=== PATIENT | male | born 1955 | race Caucasian/White ===

== ENCOUNTER → 2016-09-08 | Outpatient (CLI) | payer BC ==
[~2016-09-08] MED LIST: ATEN-175 PO; ATOR10TA88 PO; GLUCTAB7 PO; HYDR25TA5 PO; LSN40 PO
--- NOTE | 2016-09-08 15:27 | DIAGNOSTIC IMAGING REPORT ---
THYROID ULTRASOUND CLINICAL HISTORY: Multinodular thyroid. COMPARISON STUDY: Thyroid ultrasound February 27, 2016. TECHNIQUE: Sonography of the thyroid gland was performed. FINDINGS: The right lobe measures 4.6 x 1.8 x 1.9 cm and the left lobe measures 5.5 x 1.5 x 1.6 cm. Note is made of a 0.8 cm cyst within the right lobe. This is benign. Several left lobe thyroid nodules are unchanged since exam of February 27, 2016. The largest of these is a 1 x 0.6 x 0.8 cm isoechoic nodule within the lower pole. IMPRESSION: No change in several thyroid nodules since exam of February 27, 2016. These nodules do not meet criteria for biopsy. Electronically signed by: Santos Contreras M.D. 09/08/2016 3:25 PM Dictated Date/Time: 09/08/2016 3:23 PM
== END | disposition home or self-care (01) ==
LOC: C.ULTRBC 14:49
PROVIDERS: ATTEND Internal Medicine Geriatric Medicine
DX: E04.2 Nontoxic multinodular goiter (principal)

== ENCOUNTER → 2016-11-03 | Day surgery (SDC) | payer BC ==
[2016-10-21 08:00] VITALS: BMI 34.0
[~2016-11-03] VITALS: Ht 165.1 cm; Wt 94.5 kg
[~2016-11-03] MED LIST changes: -GLUCTAB7 PO; +LIDOCAINE HCL 2% 2 ML VIAL (20MG/ML) ONE; +MIDAZOLAM HCL 1 MG/ML 2ML VIAL ONE; +PROPOFOL IV EMULSION 10 MG/ML 20 ML VIAL IV ONE; +SODIUM CHLORIDE 0.9% 500ML 500 ML IV ONE
[2016-11-03 10:39] VITALS: Ht 165.1 cm; Wt 94.5 kg
--- NOTE | 2016-11-03 11:16 | Endo History and Physical ---
History & Physical Date of Service: Nov 03, 2016. Chief Complaint: SCREEENING FOR COLON CANCER Referring Physician: DR BERENICE GLASGOW History of Present Illness 61 yo CM who presents for screening colonoscopy. Past Surgical History Hx Cardiac Surgery: No Hx Internal Defibrillator: No Hx Pacemaker: No Hx Abdominal Surgery: Yes (PRAKASH) Hx of Implantable Prosthesis: No Hx Post-Op Nausea and Vomiting: No Hx Cancer Surgery: No Hx Thoracic Surgery: No Hx Orthopedic: No Hx Urinary Tract Surgery: No Family History None Social History Smoking Status: Never Smoker Hx Substance Use: No Hx Alcohol Use: No Allergies Coded Allergies: No Known Allergies (Verified , 11/03/16) Current Medications Reported Home Medications Medications Dose Route/Sig Max Daily Dose Days Date Category Lipitor (Atorvastatin Calcium) 10 Mg Tab 10 Mg PO QAM 09/24/15 Reported Lisinopril 40 Mg Tab 40 Mg PO QAM 09/24/15 Reported Hydrochlorothiazide 25 Mg Tab 25 Mg PO QAM 09/24/15 Reported Tenormin (Atenolol) 100 Mg Tab 100 Mg PO QAM 09/24/15 Reported Vital Signs Weight (Kilograms): 94.55 Height (Feet): 5 Height (Inches): 5 Date Time Temp Pulse Resp B/P Pulse Ox O2 Delivery O2 Flow Rate FiO2 11/03/16 10:45 36.6 64 20 160/96 98 Room Air Physical Exam General Appearance: WD/WN, no apparent distress Respiratory/Chest: Auscultation: breath sounds normal Cardiovascular: Heart Auscultation: RRR Abdomen: Bowel Sounds: normal Inspection & Palpation: soft, non-distended, no tenderness, guarding & rebound Assessment and Plan Assessment: 61 yo CM who presents for screening colonoscopy. Plan: Proceed with colonoscopy.
--- NOTE | 2016-11-03 11:45 | GI REPORT ---
Procedure Date: 11/03/2016 10:49 AM Procedure: Colonoscopy Indications: Screening for colorectal malignant neoplasm Medicines: Monitored Anesthesia Care Complications: No immediate complications. Estimated Blood Loss: Estimated blood loss: none. Procedure: Pre-Anesthesia Assessment: - Prior to the procedure, a History and Physical was performed, and patient medications and allergies were reviewed. The patient's tolerance of previous anesthesia was also reviewed. The risks and benefits of the procedure and the sedation options and risks were discussed with the patient. All questions were answered, and informed consent was obtained. Prior Anticoagulants: The patient has taken no previous anticoagulant or antiplatelet agents. ASA Grade Assessment: II - A patient with mild systemic disease. After reviewing the risks and benefits, the patient was deemed in satisfactory condition to undergo the procedure. After I obtained informed consent, the scope was passed under direct vision. Throughout the procedure, the patient's blood pressure, pulse, and oxygen saturations were monitored continuously. The scope was introduced through the anus and advanced to the terminal ileum. The colonoscopy was performed without difficulty. The patient tolerated the procedure well. The quality of the bowel preparation was good. The terminal ileum, ileocecal valve, appendiceal orifice, and rectum were photographed. Findings: Multiple small-mouthed diverticula were found in the sigmoid colon. A single diverticulum was inverted and initially appeared like an inflammatory polyp. Saline was injected into the base, and there was a small amount of pus noted at the base. Non-bleeding internal hemorrhoids were found during retroflexion. The hemorrhoids were small. Impression: - Diverticulosis in the sigmoid colon. - Non-bleeding internal hemorrhoids. - No specimens collected. Recommendation: - Resume previous diet. - Continue present medications. - Repeat colonoscopy in 1 year for surveillance, secondary to finding of inverted diverticulum versus polyp. - Return to primary care physician as previously scheduled. Stefano Arce DO 11/03/2016 11:44:52 AM This report has been signed electronically. Note Initiated On: 11/03/2016 10:49 AM I attest to the content of the Intraoperative Record and orders documented therein, exceptions below
--- NOTE | 2016-11-03 11:46 | Discharge Instructions ---
Endoscopy Patient Instructions Date / Procedure(s) Performed Nov 03, 2016. Colonoscopy Allergy Information Coded Allergies: No Known Allergies (Verified , 11/03/16) Discharge Date / Findings Nov 03, 2016. Diverticulosis Internal hemorrhoids Medication Instructions Stopped Medication(s): HCTZ STOPPED ON 11/02/16 OK to resume all medications today as prescribed. Reported Home Medications Medications Dose Route/Sig Max Daily Dose Days Date Category Lipitor (Atorvastatin Calcium) 10 Mg Tab 10 Mg PO QAM 09/24/15 Reported Lisinopril 40 Mg Tab 40 Mg PO QAM 09/24/15 Reported Hydrochlorothiazide 25 Mg Tab 25 Mg PO QAM 09/24/15 Reported Tenormin (Atenolol) 100 Mg Tab 100 Mg PO QAM 09/24/15 Reported Provider Instructions Activity Restrictions - No exercising or heavy lifting for 24 hours. - Do not drink alcohol the day of the procedure. - Do not drive a car or operate machinery until the day after the procedure. - Do not make any important decisions or sign important papers in 24 hours after the procedure. Following Day: - Return to full activity which may include returning to work/school. Diet Start your diet with liquids and light foods (jello, soup, juice, toast). Then eat your usual diet if not nauseated. Treatment For Common After Affects For mild abdominal pain, bloating, or excessive gas: - Rest - Eat lightly - Lie on right side Follow-Up Information Follow-up with DR BERENICE GLASGOW as scheduled Anesthesia Information What You Should Know You have had a procedure that required some medicine to reduce anxiety and discomfort. This treatment is called moderate sedation. After receiving the treatment, you may be sleepy, but you will be able to breathe on your own. The effects of the treatment may last for several hours. Follow these instructions along with Activity/Diet recommendations noted above: * Do NOT do anything where dizziness or clumsiness would be dangerous. * Rest quietly at home today, then you can be up and about tomorrow. * Have a responsible person stay with you the rest of today. * You may have had an I.V. today. If so, you may take the dressing off later today. Recommendations Call your doctor if: * Trouble breathing * Continuous vomiting for more than 24 hours * Temperature above 101 degrees * Severe abdominal pain or bloating * Pain not relieved by pain medicine ordered * There is increased drainage or redness from any incision * A large amount of rectal bleeding greater than 2-3 tablespoons. (If you had a polyp/s removed or have hemorrhoids, a small amount of blood - from the rectum is to be expected.) * You have any unanswered questions or concerns. IN THE EVENT OF A SERIOUS EMERGENCY, GO TO THE NEAREST EMERGENCY ROOM Your discharge instructions were prepared by provider Stefano Arce. Patient Instructions Signature Page Marco A Kwong Patient (or Guardian) Signature/Date: I have read and understand the instructions given to me by my caregivers. Caregiver/RN/Doctor Signature/Date: The above-named patient and/or guardian has received patient instructions on this date. + Original Patient Signature Page (only) stays with chart. Please make copy for patient.
[2016-11-03 12:15] VITALS: BP 129/82; PULSE 61; O2SAT 98
--- NOTE | 2016-11-03 12:33 | Anesthesiology Progress Note ---
Anesthesia Post Op Note Date & Time Nov 03, 2016 at 12:33 Vital Signs Pain Intensity: 0 Vital Signs Past 12 Hours Date Time Temp Pulse Resp B/P Pulse Ox O2 Delivery O2 Flow Rate FiO2 11/03/16 12:15 61 18 129/82 98 Room Air 11/03/16 12:00 62 18 122/84 98 Room Air 11/03/16 11:45 58 18 100/67 98 Room Air 11/03/16 10:45 36.6 64 20 160/96 98 Room Air Notes Mental Status: alert / awake / arousable, participated in evaluation Pt Amnestic to Procedure: Yes Nausea / Vomiting: adequately controlled Pain: adequately controlled Airway Patency, RR, SpO2: stable & adequate BP & HR: stable & adequate Hydration State: stable & adequate Anesthetic Complications: no major complications apparent
== END | disposition home or self-care (01) ==
LOC: C.GI 10:21
PROVIDERS: ATTEND Internal Medicine
DX: Z12.11 Encounter for screening for malignant neoplasm of colon (principal); K57.30 Diverticulosis of large intestine without perforation or abscess without bleeding; K63.5 Polyp of colon; K64.8 Other hemorrhoids; Z98.890 Other specified postprocedural states

== ENCOUNTER → 2017-03-31 | Outpatient (CLI) | payer BC ==
[~2017-03-31] MED LIST changes: -LIDOCAINE HCL 2% 2 ML VIAL (20MG/ML) ONE; -MIDAZOLAM HCL 1 MG/ML 2ML VIAL ONE; -PROPOFOL IV EMULSION 10 MG/ML 20 ML VIAL IV ONE; -SODIUM CHLORIDE 0.9% 500ML 500 ML IV ONE
[2017-03-31 11:34] LABS: ALT/SGPT 45 U/L (12-78); BLOOD UREA NITROGEN 16 mg/dl (7-18); BUN/CREATININE RATIO 13.6 (10-20); CALCIUM 9.7 mg/dl (8.5-10.1); CARBON DIOXIDE 30 mmol/L (21-32); CHLORIDE 103 mmol/L (98-107); CHOLESTEROL 113 mg/dl (0-200); GLUCOSE 108 mg/dl (70-99); POTASSIUM 3.7 mmol/L (3.5-5.1); SODIUM 139 mmol/L (136-145)
[2017-03-31 11:45] LABS: ALB/GLOB RATIO 1.1 (0.9-2); ALKALINE PHOSPHATASE 72 U/L (45-117); AST/SGOT 27 U/L (15-37); CHOLESTEROL/HDL RATIO 3.1; HDL CHOLESTEROL 36 mg/dl; LDL CHOLESTEROL CALCULATED 57 mg/dl; PROSTATE SPECIFIC ANTIGEN 0.617 ng/ml (0.000-4.000); THYROID STIMULATING HORMONE 0.549 uIu/ml (0.300-4.500); TRIGLYCERIDES 102 mg/dl (0-150); VERY LOW DENSITY LIPOPROT CALC 20 mg/dl
[2017-03-31 12:18] LABS: ESTIMATED AVERAGE GLUCOSE 123 mg/dl; HA1C FLAG Normal (Normal)
--- NOTE | 2017-04-04 12:02 | CODING QUERY MEDICAL NECESSITY ---
CQSUPPORTING DIAGNOSIS NEEDED A supporting diagnosis is required for the test/procedure performed on this patient in order for us to be reimbursed by the patient's insurance. Please provide a supporting diagnosis for the following test/procedure listed below next to the test name along with your signature. *If there is no additional diagnosis for this patient that would support the following test/procedure please document that below next to the test/procedure. Test(s)/Procedure(s) that require a supporting diagnosis: DOS 03/31/17 PROSTATE SPECIFIC TEST Provider Signature: Date: Thank you Alicia Chou [employer] Once completed, please kindly fax back to [phone] For questions please call [phone]
== END | disposition home or self-care (01) ==
LOC: C.LABBC 07:51
PROVIDERS: ATTEND Internal Medicine Geriatric Medicine
DX: Z11.59 Encounter for screening for other viral diseases (principal); I10 Essential (primary) hypertension; R73.9 Hyperglycemia, unspecified; E78.5 Hyperlipidemia, unspecified; E04.2 Nontoxic multinodular goiter; Z12.5 Encounter for screening for malignant neoplasm of prostate

== ENCOUNTER → 2017-04-05 | Outpatient (CLI) | payer BC ==
--- NOTE | 2017-04-05 09:30 | DIAGNOSTIC IMAGING REPORT ---
(CHEST) THORAX WITHOUT CLINICAL HISTORY: 62 years-old Male presenting with multiple pulmonary nodules, follow-up. TECHNIQUE: Multidetector CT imaging of the chest was performed without the use of intravenous contrast. IV contrast: None. A dose lowering technique was used consistent with the principles of ALARA (as low as reasonably achievable). COMPARISON: 04/01/2016. CT DOSE (mGy.cm): The estimated cumulative dose is 676.72 mGycm. FINDINGS: Gaggerman topogram: Unremarkable. On soft tissue windows, subcentimeter hypodense nodule in the right lobe of the thyroid, unchanged. No axillary, supraclavicular, hilar, or mediastinal lymphadenopathy. Normal aorta. Heart top normal in size. Coronary artery calcification. No pericardial or pleural effusion. Cholecystectomy clips noted. Right upper pole exophytic low-density renal lesion likely cyst. Spleen top normal in size. On lung windows, multiple bilateral solid pulmonary nodules are stable from prior exam. The largest on the right measures 4 mm, previously 5 mm (series 2 image 34), and the largest on the left measures 6 mm, previously 6 mm (series 2 image 36). No convincing evidence of new or enlarging nodule. Lung cyst noted in the right lower lobe. Airways patent. On bone windows, degenerative changes of the spine. IMPRESSION: 1. Multiple solid bilateral pulmonary nodules measuring up to 6 mm, stable in size and number from prior exam in March 2016. Follow-up per Fleischner Society 2017 recommendations. Please refer to below summary of Fleischner Society 2017 recommendations for follow-up of incidental CT nodules (H Sonja et al. Guidelines for management of incidental pulmonary nodules detected on CT images: From the Fleischner Society 2017. Radiology 2017; 284: 228-243.) SOLID NODULES Single nodule; size <6 mm * Low risk patients: No routine follow-up * High risk patients: Optional CT at 12 months Single nodule; size 6-8 mm * Low risk patients: CT at 6-12 months, then consider CT at 18-24 months * High risk patients: CT at 6-12 months, then at 18-24 months Single nodule; size >8 mm * Either low or high risk patients: Considered CT at 3 months, PET/CT, or tissue sampling Multiple nodules; size <6 mm * Low risk patients: No routine follow up * High risk patients: Optional CT at 12 months Multiple nodules; size 6-8 mm * Low risk patients: CT at 3-6 months, then consider CT at 18-24 months * High risk patients: CT at 3-6 months, then at 18-24 months Multiple nodules; size >8 mm * Low risk patients: CT at 3-6 months, then consider at 18-24 months * High risk patients: CT at 3-6 months, then at 18-24 months Note: These guidelines apply to incidental nodules. These guidelines did not apply to patients younger than 35 years, immunocompromised patients, or patients with cancer. * Low risk patients: Minimal or absent history of smoking and/or other known risk factors * High risk patients: History of smoking, exposure to other carcinogens, emphysema, fibrosis, upper lobe location, family history of lung cancer, etc. * If a nodule up to 8 mm is partly solid or is ground glass further follow-up is required after 24 months to exclude possible slow growing adenocarcinoma SUBSOLID NODULES Single ground-glass nodule * Nodule size < 6 mm: No routine follow-up * Nodule size > or = 6 mm: CT at 6-12 months to confirm persistence, then CT every 2 years until 5 years Single part-solid nodule * Nodule size < 6 mm: No routine follow-up * Nodules size > or = 6 mm: CT at 3-6 months to confirm persistence. If unchanged and solid component remains < 6 mm, annual CT should be performed for 5 years Multiple nodules * Nodule size < 6 mm: CT at 3-6 months. If stable, consider CT at 2 and 4 years. * Nodules size > or = 6 mm: CT at 3-6 months. Subsequent management based on the most suspicious nodule(s) Electronically signed by: Sadiq Snider M.D. 04/05/2017 9:28 AM Dictated Date/Time: 04/05/2017 9:20 AM
== END | disposition home or self-care (01) ==
LOC: C.CTS 08:50
PROVIDERS: ATTEND Internal Medicine Geriatric Medicine
DX: R91.8 Other nonspecific abnormal finding of lung field (principal)

== ENCOUNTER → 2017-11-29 | Day surgery (SDC) | payer BC, OTHER ==
[2017-11-11 11:48] VITALS: Ht 165.1 cm; Wt 95.5 kg
[~2017-11-29] VITALS: Ht 165.1 cm; Wt 95.5 kg
[~2017-11-29] MED LIST changes: -ATEN-175 PO; +ATOR10TA82 PO; -ATOR10TA88 PO; +LIDOCAINE HCL 2% 2 ML VIAL (20MG/ML) ONE; +METO-217 PO; +PROPOFOL IV EMULSION 10 MG/ML 20 ML VIAL IV ONE; +SODIUM CHLORIDE 0.9% 500ML 500 ML IV ONE
[2017-11-29 08:40] VITALS: TEMP 36.4
--- NOTE | 2017-11-29 09:15 | Endo History and Physical ---
History & Physical Date of Service: Nov 29, 2017. Chief Complaint: screening Referring Physician: Dr. Eric Vazquez History of Present Illness 62 yo CM who presents for screening colonoscopy. Past Surgical History Hx Cardiac Surgery: No Hx Internal Defibrillator: No Hx Pacemaker: No Hx Abdominal Surgery: Yes (PRAKASH) Hx of Implantable Prosthesis: No Hx Post-Op Nausea and Vomiting: No Hx Cancer Surgery: No Hx Thoracic Surgery: No Hx Orthopedic: No Hx Urinary Tract Surgery: No Family History None Social History Smoking Status: Never Smoker Hx Substance Use: No Hx Alcohol Use: Yes (RARELY) Allergies Coded Allergies: No Known Allergies (Verified , 11/11/17) Current Medications Reported Home Medications Medications Dose Route/Sig Max Daily Dose Days Date Category Toprol Xl (Metoprolol Succinate) 50 Mg Tabcr 50 Mg PO BID 11/11/17 Reported Lipitor (Atorvastatin Calcium) 10 Mg Tab 10 Mg PO QAM 09/24/15 Reported Lisinopril 40 Mg Tab 40 Mg PO QAM 09/24/15 Reported Hydrochlorothiazide 25 Mg Tab 25 Mg PO QAM 09/24/15 Reported Vital Signs Weight (Kilograms): 95.45 Height (Feet): 5 Height (Inches): 5 Date Time Temp Pulse Resp B/P (MAP) Pulse Ox O2 Delivery O2 Flow Rate FiO2 11/29/17 08:40 36.4 83 20 131/92 (105) 98 Room Air Physical Exam General Appearance: WD/WN, no apparent distress Respiratory/Chest: Auscultation: breath sounds normal Cardiovascular: Heart Auscultation: RRR Abdomen: Bowel Sounds: normal Inspection & Palpation: soft, non-distended, no tenderness, guarding & rebound Assessment and Plan Assessment: 62 yo CM who presents for screening colonoscopy. Plan: Proceed with colonoscopy.
--- NOTE | 2017-11-29 09:59 | GI REPORT ---
Procedure Date: 11/29/2017 9:25 AM Procedure: Colonoscopy Indications: High risk colon cancer surveillance: Personal history of colonic polyps Medicines: Monitored Anesthesia Care Complications: No immediate complications. Estimated Blood Loss: Estimated blood loss: none. Procedure: Pre-Anesthesia Assessment: - Prior to the procedure, a History and Physical was performed, and patient medications and allergies were reviewed. The patient's tolerance of previous anesthesia was also reviewed. The risks and benefits of the procedure and the sedation options and risks were discussed with the patient. All questions were answered, and informed consent was obtained. Prior Anticoagulants: The patient has taken no previous anticoagulant or antiplatelet agents. ASA Grade Assessment: II - A patient with mild systemic disease. After reviewing the risks and benefits, the patient was deemed in satisfactory condition to undergo the procedure. After I obtained informed consent, the scope was passed under direct vision. Throughout the procedure, the patient's blood pressure, pulse, and oxygen saturations were monitored continuously. The scope was introduced through the anus and advanced to the terminal ileum. The colonoscopy was performed without difficulty. The patient tolerated the procedure well. The quality of the bowel preparation was good. The terminal ileum, ileocecal valve, appendiceal orifice, and rectum were photographed. Findings: The perianal and digital rectal examinations were normal. Scattered small-mouthed diverticula were found in the entire colon. Non-bleeding internal hemorrhoids were found during retroflexion. The hemorrhoids were small. Impression: - Diverticulosis in the entire examined colon. - Non-bleeding internal hemorrhoids. - No specimens collected. Recommendation: - Resume previous diet. - Continue present medications. - Repeat colonoscopy in 5 years for surveillance. - Return to primary care physician as previously scheduled. Stefano Arce DO 11/29/2017 9:59:25 AM This report has been signed electronically. Note Initiated On: 11/29/2017 9:25 AM I attest to the content of the Intraoperative Record and orders documented therein, exceptions below
--- NOTE | 2017-11-29 10:00 | Discharge Instructions ---
Endoscopy Patient Instructions Date / Procedure(s) Performed Nov 29, 2017. Colonoscopy Allergy Information Coded Allergies: No Known Allergies (Verified , 11/11/17) Discharge Date / Findings Nov 29, 2017. Diverticulosis Internal hemorrhoids Medication Instructions OK to resume all medications today as prescribed Reported Home Medications Medications Dose Route/Sig Max Daily Dose Days Date Category Toprol Xl (Metoprolol Succinate) 50 Mg Tabcr 50 Mg PO BID 11/11/17 Reported Lipitor (Atorvastatin Calcium) 10 Mg Tab 10 Mg PO QAM 09/24/15 Reported Lisinopril 40 Mg Tab 40 Mg PO QAM 09/24/15 Reported Hydrochlorothiazide 25 Mg Tab 25 Mg PO QAM 09/24/15 Reported Provider Instructions Activity Restrictions - No exercising or heavy lifting for 24 hours. - Do not drink alcohol the day of the procedure. - Do not drive a car or operate machinery until the day after the procedure. - Do not make any important decisions or sign important papers in 24 hours after the procedure. Following Day: - Return to full activity which may include returning to work/school. Diet Start your diet with liquids and light foods (jello, soup, juice, toast). Then eat your usual diet if not nauseated. Treatment For Common After Affects For mild abdominal pain, bloating, or excessive gas: - Rest - Eat lightly - Lie on right side Follow-Up Information Follow-up with Dr. Eric Vazquez as scheduled Anesthesia Information What You Should Know You have had a procedure that required some medicine to reduce anxiety and discomfort. This treatment is called moderate sedation. After receiving the treatment, you may be sleepy, but you will be able to breathe on your own. The effects of the treatment may last for several hours. Follow these instructions along with Activity/Diet recommendations noted above: * Do NOT do anything where dizziness or clumsiness would be dangerous. * Rest quietly at home today, then you can be up and about tomorrow. * Have a responsible person stay with you the rest of today. * You may have had an I.V. today. If so, you may take the dressing off later today. Recommendations Call your doctor if: * Trouble breathing * Continuous vomiting for more than 24 hours * Temperature above 101 degrees * Severe abdominal pain or bloating * Pain not relieved by pain medicine ordered * There is increased drainage or redness from any incision * A large amount of rectal bleeding greater than 2-3 tablespoons. (If you had a polyp/s removed or have hemorrhoids, a small amount of blood - from the rectum is to be expected.) * You have any unanswered questions or concerns. IN THE EVENT OF A SERIOUS EMERGENCY, GO TO THE NEAREST EMERGENCY ROOM Your discharge instructions were prepared by provider Stefano Arce. Patient Instructions Signature Page Marco A Kwong Patient (or Guardian) Signature/Date: I have read and understand the instructions given to me by my caregivers. Caregiver/RN/Doctor Signature/Date: The above-named patient and/or guardian has received patient instructions on this date. + Original Patient Signature Page (only) stays with chart. Please make copy for patient.
--- NOTE | 2017-11-29 10:05 | Anesthesiology Progress Note ---
Anesthesia Post Op Note Date & Time Nov 29, 2017 at 10:05 Vital Signs Pain Intensity: 0 Vital Signs Past 12 Hours Date Time Temp Pulse Resp B/P (MAP) Pulse Ox O2 Delivery O2 Flow Rate FiO2 11/29/17 09:55 75 16 123/77 (92) 99 Room Air 11/29/17 08:40 36.4 83 20 131/92 (105) 98 Room Air Notes Mental Status: alert / awake / arousable, participated in evaluation Pt Amnestic to Procedure: Yes Nausea / Vomiting: adequately controlled Pain: adequately controlled Airway Patency, RR, SpO2: stable & adequate BP & HR: stable & adequate Hydration State: stable & adequate Anesthetic Complications: no major complications apparent
[2017-11-29 10:25] VITALS: BP 142/97; PULSE 70; O2SAT 99
== END | disposition home or self-care (01) ==
LOC: C.GI 08:26
PROVIDERS: ATTEND Internal Medicine
DX: Z12.11 Encounter for screening for malignant neoplasm of colon (principal); K57.90 Diverticulosis of intestine, part unspecified, without perforation or abscess without bleeding; K64.8 Other hemorrhoids; I10 Essential (primary) hypertension; Z86.010 Personal history of colon polyps; Z90.49 Acquired absence of other specified parts of digestive tract; Z79.899 Other long term (current) drug therapy; Z98.42 Cataract extraction status, left eye; E66.9 Obesity, unspecified; Z68.35 Body mass index [BMI] 35.0-35.9, adult

== ENCOUNTER → 2018-03-17 | Outpatient (CLI) | payer OTHER ==
[~2018-03-17] MED LIST changes: -LIDOCAINE HCL 2% 2 ML VIAL (20MG/ML) ONE; +LISI40TA3 PO; -LSN40 PO; -PROPOFOL IV EMULSION 10 MG/ML 20 ML VIAL IV ONE; -SODIUM CHLORIDE 0.9% 500ML 500 ML IV ONE
[2018-03-17 11:49] LABS: HEMOGLOBIN A1C 5.9 % (4.5-5.6)
[2018-03-17 11:59] LABS: ALBUMIN 3.9 gm/dl (3.4-5.0); ALKALINE PHOSPHATASE 72 U/L (45-117); ALT/SGPT 40 U/L (12-78); AST/SGOT 19 U/L (15-37); BLOOD UREA NITROGEN 17 mg/dl (7-18); CALCIUM 9.2 mg/dl (8.5-10.1); CARBON DIOXIDE 27 mmol/L (21-32); CHOLESTEROL 102 mg/dl (0-200); CREATININE 1.19 mg/dl (0.60-1.40); GLUCOSE 104 mg/dl (70-99); LDL CHOLESTEROL CALCULATED 41 mg/dl; SODIUM 139 mmol/L (136-145); TOTAL PROTEIN 7.4 gm/dl (6.4-8.2)
== END | disposition home or self-care (01) ==
LOC: C.LABBC 07:53
PROVIDERS: ATTEND Internal Medicine Geriatric Medicine
DX: I10 Essential (primary) hypertension (principal); R73.9 Hyperglycemia, unspecified; E78.5 Hyperlipidemia, unspecified; E04.2 Nontoxic multinodular goiter

== ENCOUNTER 2024-06-29 09:13 | Observation (INO) ==
--- NOTE | 2024-05-29 10:05 | PAT Medication Instructions ---
Medication Instructions Date of Service May 29, 2024 Home Medications Medication Instructions Recorded blood-glucose meter (OneTouch #1 ea 01/08/22 Verio Flex Meter) lancets 21 gauge (OneTouch #50 ea 01/08/22 [employer]) hydrochlorothiazide 25 mg tablet 25 mg PO QAM #90 tabs 01/02/24 atorvastatin 10 mg tablet 10 mg PO QAM #90 tabs 02/13/24 lisinopril 40 mg tablet 40 mg PO QAM #90 tabs 02/13/24 metoprolol succinate 100 mg 100 mg PO QAM #90 tabs 02/13/24 tablet,extended release 24 hr blood sugar diagnostic (OneTouch #100 ea 02/14/24 Verio test strips) amoxicillin 500 mg tablet 2,000 mg PO UD hydrochlorothiazide 25 mg tablet 25 mg PO QAM atorvastatin 10 mg tablet 10 mg PO QAM lisinopril 40 mg tablet 40 mg PO QAM metoprolol succinate 100 mg tablet,extended release 24 hr 100 mg PO QAM calcium carbonate (Tums) 200 mg PO UD PRN Acid Reflux Continue as directed amoxicillin 500 mg tablet 2,000 mg PO UD DO NOT take the morning of surgery hydrochlorothiazide 25 mg tablet 25 mg PO QAM lisinopril 40 mg tablet 40 mg PO QAM calcium carbonate (Tums) 200 mg PO UD PRN Acid Reflux Take morning of surgery With a small sip of water, OTHERWISE NOTHING TO EAT OR DRINK AFTER MIDNIGHT: atorvastatin 10 mg tablet 10 mg PO QAM metoprolol succinate 100 mg tablet,extended release 24 hr 100 mg PO QAM Take evening before surgery calcium carbonate (Tums) 200 mg PO UD PRN Acid Reflux (if needed) Other Notes If you have any questions please call us at [phone] or [phone] or [phone] or [phone]
--- NOTE | 2024-06-05 08:45 | Anesthesiology Consultation ---
Date of Service June 05, 2024 Assessment & Plan (1) Encounter for pre-operative examination: Plan - check BSG am DOS. - anesthesia history: patient states that he was discharged same day surgery for right TSA-he states that was sleeping at home in recliner and woke gasping for air at times the two nights following surgery. He has been told of snoring, denies witnessed apneas or sleep apnea testing. Case discussed with Dr. Bran who advised patient remain overnight given above and potential sleep apnea, nothing further needed from his standpoint. Detailed message left for patient and surgeon's office made aware. OR notified. Chart Review Chart Review: Acceptable Risk for Surgery and Patient seen in Pre Admission Testing Teaching & Discussion Pre-Anesthesia Teaching/Discussion Notes: Instructed NPO after midnight before surgery, except medications with 15 cc of water. Medication instructions provided according to the PAT guidelines. History Surgery Operation Date: 06/29/24 10:00 Proposed Procedures p Left Anatomic Total Shoulder Arthroplasty versus Left Reverse Total Shoulder Arthroplasty - Naeem Forrest, Height/Weight Height: 5 ft 3.5 in Weight: 103.8 kg Allergies Allergy/AdvReac Type Severity Reaction Status Date / Time No Known Allergies Allergy Verified 05/25/24 08:31 Medications Home Medications Medication Instructions Recorded Confirmed Last Taken blood-glucose meter (OneTouch #1 ea 01/08/22 04/18/24 Unknown Verio Flex Meter) lancets 21 gauge (OneTouch #50 ea 01/08/22 04/18/24 Unknown SureSoft Lancing Devices) amoxicillin 500 mg tablet 2,000 mg PO UD 02/17/23 05/25/24 Unknown hydrochlorothiazide 25 mg tablet 25 mg PO QAM #90 tabs 01/02/24 05/25/24 Unknown atorvastatin 10 mg tablet 10 mg PO QAM #90 tabs 02/13/24 05/25/24 Unknown lisinopril 40 mg tablet 40 mg PO QAM #90 tabs 02/13/24 05/25/24 Unknown metoprolol succinate 100 mg 100 mg PO QAM #90 tabs 02/13/24 05/25/24 Unknown tablet,extended release 24 hr blood sugar diagnostic (OneTouch #100 ea 02/14/24 04/18/24 Unknown Verio test strips) calcium carbonate (Tums) 200 mg PO UD PRN Acid Reflux 05/25/24 05/25/24 Unknown Past Medical History Medical History (Updated 06/05/24 @ 13:23 by Sari Hinojosa PA-C) BPH (benign prostatic hyperplasia) Coronary artery calcification per remote records, incidental finding on 2017 imaging-patient states PCP aware Diverticulosis pt denies h/o diverticulitis Dyslipidemia GERD (gastroesophageal reflux disease) History of anesthesia reaction following shoulder replacement surgery the night of discharge and then the night following woke up gasping for air at times the following two nights after surgery while sleeping in recliner. Snoring, denies witnessed apneas or sleep apnea testing History of COVID-19 (2022) + test, cold s/s. Resolved. History of kidney stones remote Hypertension controlled, stable per pt Inguinal hernia Multinodular thyroid not that pt aware of Multiple pulmonary nodules Last CT 12/2021 Considered stable, no further screening Osteoarthritis Type 2 diabetes mellitus diet controlled Patient denies h/o stroke, seizures, heart attack, heart failure, blood clots/DVTs or blood transfusions. Exercise / Class Metabolic Activity III < 4 Walking/Shop/Light housework (denies chest discomfort or shortness of breath with usual activities, < 8 steps in home) Past Family History Family History Father Prostate cancer Non-Hodgkin's lymphoma Myocardial infarction Unknown Hypertension Grandfather (Paternal) Myocardial infarction Other No family history of adverse response to anesthesia Denies family history of Ovarian cancer Diabetes Breast cancer Lung cancer Colorectal cancer Past Surgical History Surgical History History of colonoscopy 04/2023 - Repeat in 5 years History of tooth extraction Hx of cholecystectomy + ventral hernia repair 2016 S/P cataract surgery right/left Status post replacement of right shoulder joint (~06/2022) Past Anesthesia History No Family Hx of Anesthesia Complications History of PONV No Hx of PONV and No Hx of Motion Sickness Social History Smoking Status: Never smoker Do You Dip or Chew Tobacco: No (hx quit 20 yr ago) Hx Alcohol Use: Yes Alcohol type: beer and hard liquor alcohol intake frequency: other Alcohol Intake Frequency Comment: camping on weekends in summer (6 per weekend) seldom drink in winter. Hx Substance Use: No substance use type: does not use Review of Systems Patient denies chest pain, shortness of breath, dyspnea on exertion, fever, chills, cough, wheezing, or palpitations. Physical Exam Vital Signs Vitals BP 136/93 P 77 TEMP 98.6 SP02 95% on RA RESP 18 Physical Patient resting comfortably in chair in no acute distress, alert and oriented, responding appropriately throughout visit Full cervical extension range of motion without pain TMD < 3 finger breadths Mallampati Score 3 Dentition: several caps, denies chipped or loose teeth, crowns, implants or bridges Lungs: normal respiratory effort. Good air movement, clear throughout to auscultation, no adventitious breath sounds Cardiac: regular rate and rhythm, no murmurs noted Carotid arteries: negative bruit bilat Lab Results Anesthesia Preop Results Results Anesthesia Widget: WBC 8.95 K/ul (4.8-10.8) 06/05/24 Hgb 15.1 g/dl (14.0-18.0) 06/05/24 Hct 45.6 % (42.0-52.0) 06/05/24 Plt 318 K/uL (130-400) 06/05/24 Na 140 mmol/L (136-145) 06/05/24 K 3.8 mmol/L (3.5-5.1) 06/05/24 Cl 102 mmol/L (98-107) 06/05/24 CO2 31 mmol/L (21-32) 06/05/24 BUN 17 mg/dl (6-23) 06/05/24 Creat 0.98 mg/dl (0.6-1.4) 06/05/24 Glucose Level 126 mg/dl (70-99(Fasting)) H 06/05/24 PT 11.4 Seconds (9.0-12.0) 06/05/24 PTT 27 Seconds (21-31) 06/05/24 INR 1.1 (0.9-1.1) 06/05/24 HA1c 6.4 % (4.5-5.6) H 06/05/24 Blood Type A Positive 06/05/24 Antibody Screen NEGATIVE 06/05/24 Testing Electrocardiogram Date: 06/05/24 NSR, rate 71 bpm Chest X-Ray Date: 06/05/24 No acute chest disease.
[~2024-06-29 09:13] MED LIST changes: -ATOR10TA82 PO; +BUPIVACAINE 0.5 % 5 MG/1 ML PF 10ML VIAL ONE; -HYDR25TA5 PO; -LISI40TA3 PO; -METO-217 PO
[2024-06-29] MEDS: ACETAMINOPHEN 500 MG TAB PO SCH ×2 (09:41→15:03)
[2024-06-29] MEDS: GABAPENTIN 300 MG CAP PO SCH (09:41)
[2024-06-29] MEDS: FAMOTIDINE 20 MG TAB PO SCH (09:41)
[2024-06-29] MEDS: LR 60ML/HR IV SCH (09:42)
[2024-06-29] MEDS: dexAMETHasone**PF** 10 MG/ML VIAL IV SCH (09:51)
[2024-06-29] MEDS ORDERED: MIDAZOLAM HCL 1 MG/ML 2ML VIAL ONE (09:51)
[2024-06-29] MEDS ORDERED: fentaNYL citrate PF 100 MCG/2 ML VIAL ONE (09:51)
[2024-06-29] MEDS: LR 15ML/HR IV SCH (09:59)
--- NOTE | 2024-06-29 10:11 | History & Physical Bridge Note ---
Date of Service June 29, 2024 History & Physical Bridge Note I have examined the patient, reviewed the History & Physical and in the interval since the performance of the History & Physical I have noted the following changes of clinical significance: no changes noted
[2024-06-29] MEDS ORDERED: PROPOFOL IV EMULSION 10 MG/ML 20 ML VIAL IV ONE (10:42)
[2024-06-29] MEDS ORDERED: LIDOCAINE 2% 2 ML VIAL/AMP(20MG/ML) INFIL ONE (10:42)
[2024-06-29] MEDS ORDERED: ONDANSETRON INJ 2 MG/ML 2 ML VIAL ONE (10:42)
[2024-06-29] MEDS ORDERED: ePHEDrine sulfate 50 MG/ML AMP IV PRN (10:42)
[2024-06-29] MEDS ORDERED: ROCURONIUM BROMIDE 10 MG/ML 5 ML VIAL IV ONE (10:42)
[2024-06-29] MEDS ORDERED: ONDANSETRON INJ 2 MG/ML 2 ML VIAL IV PRN ×2 (10:42→14:26)
[2024-06-29] MEDS ORDERED: ATROPINE SULFATE 0.1 MG/ML 10ML SYR IV PRN (10:42)
[2024-06-29] MEDS ORDERED: fentaNYL citrate PF 100 MCG/2 ML VIAL IV PRN (10:42)
[2024-06-29] MEDS: TRANEXAMIC ACID 1,000 MG **IV Pre-op IV SCH (10:49)
[2024-06-29] MEDS: ceFAZolin 2000MG 2,000 MG/15 ML SYR IV SCH ×2 (11:03→17:51)
[2024-06-29] MEDS ORDERED: PHENYLEPHRINE 100MCG/ML 5ML SYR ONE ×2 (11:47→12:10)
[2024-06-29] MEDS: ROPIV 0.5% 246mg, Ketorolac 30mg, EPINEPHrine 0.5mg in NSS INFIL SCH (12:01)
[2024-06-29] MEDS: ORTHO JOINT ANESTHETIC ONE (12:01)
[2024-06-29] MEDS ORDERED: SUGAMMADEX SODIUM 200 MG/2 ML VIAL IV ONE (12:05)
[2024-06-29] MEDS: TRANEXAMIC ACID 1,000 MG **IV Intra-op IV SCH (12:10)
[2024-06-29] MEDS ORDERED: ePHEDrine sulfate 50 MG/ML AMP ONE (12:10)
--- NOTE | 2024-06-29 12:23 | Operative Report ---
PG Post Operative Report Pre & Post Diagnosis Operation Date: 06/29/24 11:00 Pre-Op Diagnosis: Left Shoulder Osteoarthritis with tendinopathy long head of the biceps tendon Post-Op Diagnosis: Left Shoulder Osteoarthritis with tendinopathy long head of the biceps tendon I identified the patient and participated in the time-out.: Yes Procedure Operation Date: 06/29/24 11:00 Actual Procedures p Left Anatomic Total Shoulder Arthroplasty, Cemented(Left) with open biceps tenodesis as a distinct and separate procedure (modifier 59)- Naeem Forrest DO Surgeon Naeem Forrest DO Business Intelligence Manager Brenden Childress PA-C Estimated Blood Loss 200 Findings Consistent with Post-Op Diagnosis Specimens Left humeral head Description of Procedure A CPT code modifier 59: The long head of the biceps tendon was enlarged and inflamed consistent with tendinopathy. A tenodesis was opted. This was a separate and distinct portion of the procedure. For these reasons, a CPT code modifier 59 will be added to this case. Implants used: I used a [employer] Comprehensive total shoulder arthroplasty system with a size 13 press fit micro humeral stem, a size 46 x 18 eccentric humeral head, and a size 3 glenoid with a trabecular metal peg. The glenoid was cemented in place with Palacos G cement. Marco A arrived at [facility] for the above procedure. He was seen in the preoperative holding area and the operative extremity was identified and signed. He was given a preoperative antibiotic, TXA, and an interscalene nerve block. He was taken back to the operating room, laid on table in supine position, and put under general anesthesia. He was then put into the beachchair position. The shoulder was then prepped and draped in sterile fashion. A timeout was done and the patient and the operative extremity was properly identified. A deltopectoral approach was used. Dissection was taken down through the fascia and the deltoid was retracted laterally and the conjoined tendon was retracted medially. The anterior shoulder was exposed. The biceps groove was opened up and the biceps tendon was examined extensively. The biceps tendon demonstrated enlargement and inflammatory changes consistent with longstanding inflammation in the context of osteoarthritis. The long head of the biceps tendon was then tenodesed to the upper border of the pectoralis major. This was a separate and distinct portion of the procedure. The subscapularis was then released off the lesser tuberosity with a centimeter of cuff tissue remaining. The inferior capsule was released and the humeral head was dislocated. The rotator cuff was inspected and intact. A canal finding reamer was sent down the center of the humeral canal. Sequential reaming up to a size 13 reamer was done. Offset reamer a proximal humeral resection guide was placed. The proximal humerus was resected at 135 of inclination and 30 of retroversion. Inferior osteophytes were then removed and the glenoid was exposed. Time was spent doing an appropriate labral release. The glenoid measured to be a size 3. A 3.2 mm Steinmann pin was placed in the central hole of the glenoid vault pin guide. The glenoid was then reamed with a propeller reamer. The central post cutter was then used to prepare for the central boss. The cannulated peripheral peg drill guide was then placed and 3 peg holes were drilled. The final size 3 glenoid was then cemented in place with Palacos G cement. Surrounding soft tissues were then injected with 100 cc of an orthopedic pain control cocktail. Once cement had dried the proximal humerus was once again exposed. Sequential broaching of the humerus up to a size 13 broach was done. Off that broach a size 46 x 18 eccentric humeral head was trialed. The shoulder was then reduced, brought through a full range of motion, and felt to be stable. The shoulder was then dislocated and the broach was removed. The final size 13 micro humeral stem implant was then impacted into place. A size 46 x 18 eccentric humeral head was then impacted onto the humeral stem. The shoulder was then reduced and once again brought through a full range of motion and felt to be stable. The subscapularis was then tenodesed back to the lesser tuberosity with transosseous FiberWire sutures and side to side sutures with the arm in 45 of external rotation. 2 sutures were placed in the lateral rotator interval. A dilute betadyne lavage was then done for 3 minutes. The joint was then irrigated with normal saline solution. Hemostasis was obtained. The interval was closed with 2-0 Vicryl suture. The skin was closed with 2-0 Vicryl and ana. A Silverlon dressing was placed and the arm was rested in a regular arm sling. He was then extubated and transferred to a hospital bed. He was taken to the postanesthesia care unit in stable condition. He tolerated the procedure well. Brenden Childress PA-C, was present for the entire procedure. He was critical for patient positioning, prepping, draping, retraction exposure, wound closure and application of sterile dressing. I attest to the content of the Intraoperative Record and any orders documented therein. Any exceptions are noted below.
--- NOTE | 2024-06-29 13:33 | XRay Report ---
XR shoulder LT min 2V routine CLINICAL HISTORY: Post shoulder surgery COMPARISON: Left shoulder radiographs March 14, 2024. FINDINGS: Left basilar opacity favors atelectasis. Alignment of the left shoulder arthroplasty is an atomic. There is no periprosthetic fracture or unexpected radiopaque foreign body. There are skin sta ples. IMPRESSION: Expected findings following left shoulder arthroplasty. ACT 112: Negative or not required by law. Electronically signed by: Santos Contreras M.D. 06/29/2024 1:31 PM
[2024-06-29] MEDS ORDERED: METOCLOPRAMIDE HCL INJ 5 MG/ML 2 ML VIAL IV PRN (14:26)
[2024-06-29] MEDS ORDERED: HYDROmorphone INJ 0.5 MG/0.5 ML SYR IV PRN (14:26)
[2024-06-29] MEDS ORDERED: NALOXONE HCL 0.4 MG/1 ML VIAL/CARP IV PRN (14:26)
[2024-06-29] MEDS ORDERED: bisacodyL 10 MG SUPP PR PRN (14:26)
[2024-06-29] MEDS ORDERED: oxyCODONE HCL IR 5 MG TAB (IMMEDIATE RELEASE) PO PRN (14:26)
[2024-06-29] MEDS ORDERED: MAGNESIUM HYDROXIDE SUSP 30 ML UDC PO PRN (14:26)
[2024-06-29] MEDS ORDERED: CALCIUM CARBONATE 500 MG CHEWABLE TAB PO PRN (14:26)
--- NOTE | 2024-06-29 14:42 | Anesthesiology Progress Note ---
Date of Service June 29, 2024 Anesthesia Post Procedure Vital Signs Vital Signs: Temp Pulse Pulse Resp BP Pulse Ox O2 Del Method 06/29/24 14:20 91 H 18 109/66 94 Nasal Cannula 06/29/24 14:05 89 18 130/86 94 Nasal Cannula 06/29/24 13:50 86 19 128/75 94 Nasal Cannula 06/29/24 13:35 36.2 C L 84 18 119/85 95 Nasal Cannula 06/29/24 13:25 82 19 119/81 99 Nasal Cannula 06/29/24 13:15 81 19 132/92 99 Oxymask 06/29/24 13:05 86 19 137/95 98 Oxymask 06/29/24 12:57 36.0 C L 86 18 144/81 H 95 Oxymask 06/29/24 09:31 37 C 80 16 164/101 H 97 Room Air O2 Flow Rate 06/29/24 14:20 4 06/29/24 14:05 4 06/29/24 13:50 4 06/29/24 13:35 4 06/29/24 13:25 4 06/29/24 13:15 12 06/29/24 13:05 12 06/29/24 12:57 12 06/29/24 09:31 Pain Intensity Left Shoulder: Pain Intensity: 2 Transfer of Care Handoff Completed per policy Notes Mental Status: alert / awake / arousable Patient Amnestic to Procedure: Yes Nausea / Vomiting: adequately controlled Pain: adequately controlled Airway Patency, RR, SpO2: stable & adequate BP & HR: stable & adequate Hydration State: stable & adequate Anesthetic Complications: no major complications apparent and Pt Satisfied with anesthetic care
[2024-06-29] MEDS: KETOROLAC TROMETHAMINE 15 MG/ML VIAL IV SCH (15:02)
[2024-06-29 17:53] VITALS: RESP 18
[2024-06-29] MEDS: DOCUSATE SODIUM 100 MG CAP PO SCH (21:23)
[2024-06-29] MEDS: SENNA 8.6 MG TAB PO SCH (21:23)
[2024-06-30 07:44] VITALS: BP 153/96; PULSE 82; TEMP 97.9
[2024-06-30 07:53] VITALS: O2SAT 95
--- NOTE | 2024-06-30 08:04 | Discharge Summary ---
Date of Service June 30, 2024 Principal Diagnosis Same as "Discharge Diagnosis" noted below under Discharge Instructions. Discharge Exam On physical exam of the left shoulder, the dressing is clean and dry. He is wearing his sling as instructed. He has active motion of his hand and his wrist.. Discharge Data Procedures Performed Operation Date: 06/29/24 11:00 Actual Procedures p Left Anatomic Total Shoulder Arthroplasty, Cemented(Left) - Naeem Forrest DO Ordered Studies 06/29/24 05:00 US - OR guided needle placemen Routine Hospital Course (1) Status post replacement of left shoulder joint: On June 29, 2024 Marco A arrived at [facility] and underwent a left shoulder replacement without complication. He had a general anesthetic and a left interscalene nerve block. Postoperatively he was placed in a sling and transferred to the general orthopedic floors. His hospital course was uneventful. On postop day #1, his vital signs were stable and his pain is well- controlled. He was able to participate well with physical therapy doing ambulation and range of motion exercises. He was then discharged to home. He will follow-up with orthopedics in 2 weeks. PG Care Time/CCT Total # of Minutes Spent Total Time Spent with Patient: Total time spent is greater than 50% in coordination of care (as documented) at patient's floor/unit and/or counseling patient: Discharge Plan Discharge Items Patient Disposition: Home - Self-Care Reason For Visit: LEFT TOTAL SHOULDER REPLACEMENT Discharge Diagnosis: Left shoulder replacement Activity: Per Instructions section Non-emergency contact: Surgeon Call non-emergency contact if: your wound has increased redness and your wound has increased drainage Follow-up/Referrals: Naeem Hernández DO [Primary Care Provider] - Diet: Regular Addtl Attending Provider Instructions: Activity and Therapy Recommendations: * If you are using [facility] then therapy will be provided at your home until they feel you have accomplished all of your goals. * If you are using [facility] then Physical Therapy will be provided until they feel you are ready to start Outpatient Physical Therapy. * If you are not using home therapy then Outpatient Physical Therapy should start about 3-5 days from your day of surgery. Therapy will last about 8-12 weeks * Wear your sling for 3 weeks, unless otherwise instructed. You may remove your sling to shower and to dress, but otherwise, you should be in your sling at all times, including while sleeping * The shoulder replacement is very stable and you can use your hand while in the sling * You were shown a series of exercises in the hospital. Do these exercises daily including the exercises you were shown in physical therapy. Medications: * Narcotic You will likely be sent home from the hospital with a prescription for the narcotic pain medication that worked best throughout your stay. * Cefadroxil -take the antibiotic twice a day for 10 days to help prevent infection. * Other medications may be prescribed for specific circumstances. If you have any questions, please call the office at . * Resume previous home medications unless otherwise instructed Dressing Care: Leave the Silverlon dressing in place for 7 days. After 7 days you may remove the dressing. If the incision is not draining then you may leave the ana open to air. If there is a little bit of drainage or if the ana are getting stuck on your clothing then cover the incision with a dry dressing. The ana will be removed at your 2 week follow-up appointment. Showering: You may shower with the Silverlon dressing in place. Do not let the shower spray hit the dressing directly. Pat the Silverlon dressing dry. If the dressing becomes wet underneath, then simply remove the dressing. Keep the incision dry until you are 7 days out from the day of surgery. After 7 days you may remove the Silverlon dressing and shower with the ana exposed. Let soapy water run over the ana and pat them dry. Do not scrub or soak the incision. Diet: You may resume your previous diet. Things To Watch For: * Drainage from the incision site that occurs more than one week after your surgery. * Increased redness at the incision site. * Fever above 102 degrees Fahrenheit. * Unusual chest pain or shortness of breath. * Call [facility] at with any of the above problems Follow-Up Visit: Follow-up with Dr. Forrest's PA (Naeem Reyes) 2-3 weeks after your day of surgery. He will remove your ana and answer any questions. If you have any additional questions or concerns, Dr Forrest is usually in the office at the same time and will be available An appointment was probably scheduled when you signed-up for surgery in the office. If you have any questions call More detailed instructions as well as Frequently Asked Questions were provided in a folder by our office when you signed-up for surgery. Please review these instructions when you get home. If you have any further questions or concerns, please feel free to call the office at [phone] Pending Studies at Discharge: No Stand-Alone Forms: My [facility] Medications and DC Order Prescriptions: New oxycodone 5 mg tablet 5 mg PO Q6H PRN (Reason: pain) Qty: 30 0RF cefadroxil 500 mg capsule 500 mg PO BID 10 Days Qty: 20 0RF Continued (DME) blood-glucose meter [OneTouch Verio Flex meter] Misc See Rx Instructions .Route Qty: 1 0RF Rx Instructions: As directed test once daily Dx E11.9 (DME) lancets [OneTouch SureSoft Lancing Dev] 21 gauge misc See Rx Instructions .Route Qty: 50 3RF Rx Instructions: As directed test once daily Dx E11.9 hydrochlorothiazide 25 mg tablet 25 mg PO QAM Qty: 90 3RF atorvastatin 10 mg tablet 10 mg PO QAM Qty: 90 3RF lisinopril 40 mg tablet 40 mg PO QAM Qty: 90 3RF metoprolol succinate 100 mg tablet extended release 24 hr 100 mg PO QAM Qty: 90 3RF (DME) OneTouch Verio test strips Strip See Rx Instructions .Route Qty: 100 3RF Rx Instructions: testing 1 time daily amoxicillin 500 mg tablet 2,000 mg PO UD Patient Comments: prior to dental procedures Rx Instructions: 4 tabs 1 hour prior to procedure calcium carbonate [Tums] 200 mg calcium (500 mg) Tablet,Chewable 200 mg PO UD PRN (Reason: Acid Reflux) Discharge Orders: Discharge Order (Routine); Ordered 06/30/24 Ordered By: Naeem Forrest Admission Data Admit Date/Time: 06/29/24 12:46 Attending Provider: Naeem Forrest Admit Provider: Naeem Forrest Primary Care Provider: Naeem Hernández
--- NOTE | 2024-06-30 08:04 | Orthopedic Progress Note ---
Date of Service June 30, 2024 Assessment & Plan (1) Status post replacement of left shoulder joint: Overall he is doing very well. He is not having much pain in the left wrist. He will be seen by physical therapy today for ambulation and range of motion exercises. He can be discharged to home later today. He will follow-up with orthopedics in 2 weeks. Sylvia Strickland was seen and examined at bedside this morning. Overall he is doing very well. He is not having much pain in the left shoulder. He is been up and ambulating to the bathroom. He has no complaints.. Review of Systems All systems reviewed & are unremarkable except as noted in HPI & below. Physical Exam On physical exam of the left shoulder, the dressing is clean and dry. He is wearing his sling as instructed. He has active motion of his hand and his wrist.. Results & Data Results & Data Laboratory Results . Diagnostic Findings Postoperative x-rays of the left shoulder show the prosthesis to be in anatomic alignment without any evidence of fracture complication, or loosening.. PG Care Time/CCT Total # of Minutes Spent Total Time Spent with Patient: Total time spent is greater than 50% in coordination of care (as documented) at patient's floor/unit and/or counseling patient: Coding Level of Care Code 55242 Post Operative Follow-Up Diagnoses Status post replacement of left shoulder joint Z96.612
[2024-06-30] MEDS: lisinopril 40 MG TAB PO SCH (08:06)
[2024-06-30] MEDS: dexAMETHasone 4 MG TAB PO SCH (08:06)
[2024-06-30] MEDS: METOPROLOL SUCC 50MG EXT REL TAB PO SCH (08:06)
[2024-06-30] MEDS: hydroCHLOROthiazide 25 MG TAB PO SCH (08:06)
[2024-06-30] MEDS: MULTIVITAMIN TAB PO SCH (08:06)
[2024-06-30] MEDS: ATORVASTATIN 10 MG TAB PO SCH (08:06)
== END 2024-06-30 10:30 | disposition home or self-care (01) ==
LOC: ASU 09:13 → 3E 09:13